=== PATIENT | male | born 1975 | race Caucasian/White ===

== ENCOUNTER 2018-03-25 14:17 | Outpatient (CLI) | payer SELFPAY ==
[~2018-03-25] VITALS: Ht 165.1 cm; Wt 122.5 kg
[2018-03-25] MEDS ORDERED: METF-397 PO (15:17)
== END 2018-03-25 15:18 | disposition home or self-care (01) ==
LOC: PREOP 14:17
PROVIDERS: ATTEND Surgery
DX: Z01.818 Encounter for other preprocedural examination (principal)

== ENCOUNTER 2018-03-29 11:06 | Day surgery (SDC) | payer BC ==
[~2018-03-29 11:06] MED LIST: METF-397 PO
[2018-03-29] MEDS ORDERED: LACTATED RINGERS 1,000 ML IV ONE (11:10)
[2018-03-29] MEDS ORDERED: LACTATED RINGERS 1,000 ML IV STA (11:13)
[2018-03-29] MEDS ORDERED: PROPOFOL INJECTION 50 ML IV ONE ×2 (11:46→12:42)
[2018-03-29] MEDS ORDERED: MIDAZOLAM 2 MG/2 ML (VERSED) VIAL ONE (11:46)
--- NOTE | 2018-03-29 12:22 | Progress Note-Pre Operative ---
Pre-Operative Progress Note H&P Reviewed The H&P was reviewed, patient examined and no changes noted. Time Seen by Provider: 10:15 Date H&P Reviewed: Mar 29, 2018 Time H&P Reviewed: 10:16 Pre-Operative Diagnosis: rectal bleed JOHNATHAN MATHUR DO Mar 29, 2018 12:22
[2018-03-29 12:25] VITALS: BP 165/92
[2018-03-29 13:20] VITALS: BP 115/64
--- NOTE | 2018-03-29 13:33 | Progress Note-Post Operative ---
Post-Operative Progess Note Surgeon (s)/Scowman (s) Surgeon JOHNATHAN MATHUR DO Scowman: none Pre-Operative Diagnosis rectal bleed Post-Operative Diagnosis Same Int hemorrhoids Anal fissure Poor prep Procedure & Operative Findings Date of Procedure 03/29/18 Procedure Performed/Findings Colonoscopy Anesthesia Type IV sedation by EDUCATION REP Estimated Blood Loss Estimated blood loss (mL): none Specimens/Packing Specimens Removed none JOHNATHAN MATHUR DO Mar 29, 2018 13:33
--- NOTE | 2018-03-29 13:35 | Endoscopy Discharge Instruct ---
Endo Procedure/Findings Findings 1.: Internal Hemorrhoids 2.: Other Findings (anal fissure) 3.: Other Findings (Poor prep) Discharge Instructions - Activity: You might feel a little sleepy until tomorrow. This is due to the medicine you received to relax you. Until tomorrow, you should: NOT drive a car, operate machinery or power tools. NOT drink any alcoholic beverages. NOT make any important decisions or sign importortant papers. Do not return to work until tomorrow, unless otherwise instructed. Resume previous activities tomorrow. Diet: Start by taking liquids. If you tolerate liquids, advance to solid food. Call for an appointment in one week Instructions: 1.: Colonoscopy in 1 year Notify Physician - If you experience excessive bleeding, unusual abdominal pain, fever, or chest pain, contact your doctor immediately. Follow-Up: - I have received and understand the above instructions and will call my doctor if I have any further questions. Patient Signature Date Nurse Signature Other (Relationship) JOHNATHAN MATHUR DO Mar 29, 2018 13:35
[2018-03-29 13:50] VITALS: BP 134/72
[2018-03-29 13:55] VITALS: BP 134/72
--- NOTE | 2018-03-30 01:08 | OPERATIVE REPORT ---
DATE OF SERVICE: 03/29/2018 PREOPERATIVE DIAGNOSIS: Rectal bleed. POSTOPERATIVE DIAGNOSES: Rectal bleed, internal hemorrhoids, anal fissure and poor prep. PROCEDURE: Colonoscopy. SURGEON: Ignacio Nam DO TALENT DEVELOPMENT COORDINATOR: None. ANESTHESIA: IV sedation by FOOD SAFETY OFFICER. SPECIMENS: None. BLOOD LOSS: None. FLUIDS: Per anesthesia. POSTOPERATIVE CONDITION: Stable. INDICATION FOR PROCEDURE: The patient is a 42-year-old male who has been having some rectal bleeding and needed a workup. FINDINGS: The patient unfortunately had a poor prep, there was a lot of retained fecal material, especially in the right side of the colon. I saw some internal hemorrhoids and anal fissures; did not see any large pathology, but could have missed some small polyps because of the retained fecal material. PROCEDURE NOTE: After informed consent was obtained, the patient was brought to the endoscopy suite, placed in the bed left lateral decubitus position. He was administered IV sedation by the FOOD SAFETY OFFICER who then monitored his vitals the entire time, heart rate, blood pressure and pulse ox and the scope was inserted, pushed all the way about 160 cm, able to get all the way to the cecum. Unfortunately, the entire right side, there was retained fecal material, took pictures of this. Able to visualize the ileocecal valve and thought I saw the terminal ileum and then slowly withdrew the scope, insufflating to look circumferentially at the woo looking at the cecum up the ascending colon to the hepatic flexure. Again, all throughout here had some retained fecal material, then down the transverse colon to the splenic flexure, into the descending colon, saw the beginnings of some diverticula here. Continued down into the sigmoid colon, then into the rectum, retroflexed in the rectal vault, saw some internal hemorrhoids and then when I pulled the scope out thought I saw an anal fissure and took a picture of this. The patient tolerated the procedure. He was recovered in endoscopy suite. Job ID: [id number] DocumentID: [id number] Dictated Date: 03/29/2018 13:49:18 Art Gilder Date: 03/30/2018 00:31:02 Dictated By: IGNACIO NAM DO MTDD
== END 2018-03-29 13:55 | disposition home or self-care (01) ==
LOC: ENDO 11:06
PROVIDERS: ATTEND Surgery
DX: K60.2 Anal fissure, unspecified (principal); K64.8 Other hemorrhoids; K62.5 Hemorrhage of anus and rectum; E11.9 Type 2 diabetes mellitus without complications; F17.220 Nicotine dependence, chewing tobacco, uncomplicated; Z79.84 Long term (current) use of oral hypoglycemic drugs; E66.9 Obesity, unspecified; Z68.42 Body mass index [BMI] 45.0-49.9, adult
CPT/HCPCS: 82962